=== PATIENT | male | born 1980 | race African-American/Black ===

== ENCOUNTER 2019-01-25 21:22 | Emergency (ER) | payer MEDICAID ==
[~2019-01-25] VITALS: Ht 185.4 cm; Wt 108.9 kg
[2019-01-25 21:41] VITALS: BP 147/97
[2019-01-25] MEDS ORDERED: cefTRIAXone W LIDOCAINE 1 GM IM IM ONE (22:15)
[2019-01-25] MEDS ORDERED: TETANUS-DIPTH-ACEL PERTUSSIS 0.5ML SYRG IM ONE (22:15)
[2019-01-25] MEDS ORDERED: cefTRIAXone SOD 1,000 MG VL ONE (22:37)
== END 2019-01-25 23:03 | disposition home or self-care (01) ==
LOC: ER 21:22
DX: S71.112A Laceration without foreign body, left thigh, initial encounter (principal); F17.210 Nicotine dependence, cigarettes, uncomplicated; F12.10 Cannabis abuse, uncomplicated; T88.1XXA Other complications following immunization, not elsewhere classified, initial encounter; X99.1XXA Assault by knife, initial encounter; Y93.89 Activity, other specified; Y92.524 Gas station as the place of occurrence of the external cause; Y99.8 Other external cause status
CPT/HCPCS: 12001; 73552; 90471; 90715; 96372; 99283; J0696

== ENCOUNTER 2019-02-01 15:23 | Emergency (ER) | payer MEDICAID ==
[~2019-02-01] VITALS: Ht 175.3 cm; Wt 97.1 kg
[2019-02-01 15:35] VITALS: BP 147/98
== END 2019-02-01 17:41 | disposition home or self-care (01) ==
LOC: ER 15:51
DX: S71.112D Laceration without foreign body, left thigh, subsequent encounter (principal); F17.210 Nicotine dependence, cigarettes, uncomplicated; F12.10 Cannabis abuse, uncomplicated; X58.XXXD Exposure to other specified factors, subsequent encounter

== ENCOUNTER 2019-02-15 13:21 | Emergency (ER) | payer MEDICAID ==
[~2019-02-15] VITALS: Ht 177.8 cm; Wt 95.3 kg
[2019-02-15 13:29] VITALS: BP 142/100
== END 2019-02-15 14:46 | disposition home or self-care (01) ==
LOC: ER 13:22
DX: S71.112D Laceration without foreign body, left thigh, subsequent encounter (principal); F17.210 Nicotine dependence, cigarettes, uncomplicated; F12.10 Cannabis abuse, uncomplicated; X58.XXXD Exposure to other specified factors, subsequent encounter